=== PATIENT | female | born 1980 | race Caucasian/White ===

== ENCOUNTER → 2024-06-17 | Outpatient (CLI) | payer OTHER ==
[~2024-06-17] MED LIST: BCP'S; CLON.5 PO; DOXE10; Dazidox10 MG; FENTERMINE; FERROUS SULFAT325 M3 PO; HYDACE5; HYDACE5 PO; HYOS.125 SL; LABE100 PO; LABE200 PO; LACT PO; LIDOCAINE TOP; Labetalol HCl300 MG PO; MAXALT; MELA3 PO; MENTHOL TOP; MULTIPLE VITAM1 EACH PO; NAPR220 PO; NAPR500; NITR100CA PO; OMEP20ER PO; OXYACE5T PO; PERCOCET 10-321 EAC6 PO; PHENA100 PO; PRENATAL TABLE1 EAC2 PO; PROAIR RESPICL90 MCG IH; PROC10 PO; RXOXYACE PO; RXSULTRIDS PO; SULTRIDS PO
[2024-06-18 07:37] LABS: Bacterial Vaginosis PCR Negative (NEGATIVE); Candida glabrata-krusei, PCR NOT DETECTED (NOT DETECT)
[2024-06-18 07:56] LABS: Candida Group, PCR DETECTED (NOT DETECT)
[2024-06-18 08:09] LABS: Chlamydia Trachomatis Cervix NOT DETECTED (NOT DETECT); Neisseria Gonorrhoea Cervix NOT DETECTED (NOT DETECT)
== END ==
LOC: LAB SHORT 17:13 → LAB 17:13
PROVIDERS: Physician Assistant Surgical
DX: Z20.2 Contact with and (suspected) exposure to infections with a predominantly sexual mode of transmission (principal)
CPT/HCPCS: 87481; 87491; 87591; 87661; 87801